=== PATIENT | female | born 1980 | race Caucasian/White ===

== ENCOUNTER 2020-09-29 20:53 | Emergency (ER) | payer OTHER ==
[~2020-09-29 20:53] MED LIST: AMBIEN5 MG PO; BACLOFEN 10MG T10 MG PO; BACLOFEN10 MG PO; CYCLOBENZAPRINE10 MG PO; DICLOFENAC SODI75 MG PO; FLEXERIL10 MG PO; KLONOPIN0.5 MG PO; LISINOPRIL 5 MG5 MG PO; MEDROL 4MG DOSEP4 MG PO; OZEMPIC1 MG/0.75 IJ
[2020-09-29 21:32] LABS: BASOPHIL 0.1 % (0-2); EOSINOPHIL 1.2 % (0-5); HCT 42.8 % (37.0-47.0); HGB 14.3 g/dl (12.5-16.0); LYMPHOCYTE 33.5 % (15-48); MCH 29.7 pg (25.0-31.0); MCHC 33.4 g/dL (32.0-36.0); MONOCYTE 12.2 % (0-12); MPV 8.4 fL (6.0-9.5); NEUTROPHIL 52.9 % (41-80); NRBC 0; PLT 272 K/uL (150-400); RBC 4.81 M/uL (4.20-5.40); WBC 7.3 K/uL (4.0-10.5)
[2020-09-29 21:48] LABS: BILIRUBIN NEGATIVE (NEGATIVE); BLOOD TRACE-INTACT Ery/uL (NEGATIVE); CLARITY CLEAR (CLEAR); COLOR YELLOW (YELLOW); GLUCOSE (U) NORMAL (NORMAL); LEUKOCYTES NEGATIVE Leu/uL (NEGATIVE); NITRITE POSITIVE (NEGATIVE); PROTEIN NEGATIVE (NEGATIVE); SPECIFIC GRAVITY >=1.030 (1.001-1.030); UROBILINOGEN 0.2 mg/dL (0.2-1.0)
[2020-09-29 21:49] LABS: ALBUMIN 3.9 g/dL (3.4-5.0); BILIRUBIN - TOTAL 0.4 mg/dL (0.2-1.0); BUN/CREAT RATIO (CALC) 9.3 RATIO; CREATININE 1.08 mg/dL (0.51-0.95); POTASSIUM 3.5 mmol/L (3.5-5.1); TOTAL PROTEIN 7.9 g/dL (6.4-8.2)
[2020-09-29 21:56] LABS: URINARY RBC RARE
[2020-09-29 21:57] LABS: BACTERIA 3+; SQUAMOUS EPITHELIAL CELLS RARE; TRANSITIONAL EPITHELIAL CELLS >50
[2020-09-30] MEDS ORDERED: MACROBID100 MG PO (00:19)
== END 2020-09-30 00:48 | disposition home or self-care (01) ==
LOC: FER 20:53
PROVIDERS: Emergency Medicine
DX: N39.0 Urinary tract infection, site not specified (principal); E11.9 Type 2 diabetes mellitus without complications; I10 Essential (primary) hypertension; Z90.710 Acquired absence of both cervix and uterus; Z79.899 Other long term (current) drug therapy
CPT/HCPCS: 36415; 71275; 80053; 81001; 84484; 85025; 85379; 87076; 87088; 87186; 93005; J7040; Q9967